=== PATIENT | female | born 1975 | race Hispanic/Latino ===

== ENCOUNTER 2018-01-05 11:22 | Emergency (ER) | payer SELFPAY ==
[2018-01-05 11:54] VITALS: TEMP 97.4; O2SAT 97
--- NOTE | 2018-01-05 12:30 | ED.PDOC ---
History of Present Illness - General Chief Complaint: General Stated Complaint: lt hip pain radiating to lt ankle Time Seen by Provider: 01/05/18 12:28 Source: patient Exam Limitations: no limitations - History of Present Illness Initial Comments: Alexandria Bustamante 42 y/o female stated that she has sharp pains left lower back radiating to back of left thigh/leg for the last 7 days no bowel or bladder dysfunction;no history of trauma,no weight loss,no fever Timing/Duration: constant, other - see hpi Improving Factors: rest Worsening Factors: movement Associated Symptoms: other - see hpi Allergies/Adverse Reactions: Allergies NO KNOWN ALLERGY Allergy (Verified 01/05/18 11:54) Home Medications: Ambulatory Orders Cyclobenzaprine HCl 1 tablet PO DAILY 01/05/18 Gabapentin 300 mg PO BID #30 cap 01/05/18 Levothyroxine Sodium [Synthroid] 225 mcg PO DAILY 01/05/18 Naproxen Sodium [Aleve] 1 tablet PO BID PRN 01/05/18 Tramadol HCl 50 mg PO TID PRN #30 tab 01/05/18 predniSONE 20 mg PO DAILY 10 Days #10 tab 01/05/18 Review of Systems - Review of Systems Constitutional: States: no symptoms reported EENTM: States: no symptoms reported Respiratory: States: no symptoms reported Musculoskeletal: States: see HPI Neurological: States: see HPI All other Systems: Reviewed and Negative, No Change from Baseline Past Medical History (General) - Patient Medical History Hx Seizures: No Hx Stroke: No Hx Dementia: No Hx Asthma: No Hx of COPD: No Hx Cardiac Disorders: No Hx Congestive Heart Failure: No Hx Pacemaker: No Hx Hypertension: No Hx Thyroid Disease: Yes - cancer Hx Diabetes: No Hx Gastroesophageal Reflux: No Hx Renal Disease: No Hx Cancer: Yes Hx of HIV: No Hx MRSA: No Surgical History: other - total thyroidectomy - Vaccination History Hx Tetanus, Diphtheria Vaccination: No Hx Influenza Vaccination: No Immunizations Up to Date: Yes - Social History Hx Tobacco Use: Yes Hx Alcohol Use: Yes - social Hx Substance Use: No Hx Depression: No Feels Threatened In Home Enviroment: No Feels Threatened In a Relationship: No - Female History Patient is a Female of Child Bearing Age (10 -59 yrs old): Yes Patient : No Family Medical History - Family History Mother Family History: Unknown Hx Family Hypertension: Yes - parents Hx Family Diabetes: Yes - parents Physical Exam - Physical Exam General Appearance: Alert, Comfortable, No apparent distress Eye Exam: bilateral normal Ears, Nose, Throat: hearing grossly normal Neck: supple Respiratory: lungs clear Cardiovascular/Chest: normal peripheral pulses, regular rate, rhythm, no murmur Peripheral Pulses: radial,right: 2+, radial,left: 2+ Gastrointestinal/Abdominal: non tender, soft Back Exam: no CVA tenderness, no vertebral tenderness, decreased range of motion - painful Extremity: non-tender, normal inspection, no calf tenderness Neurologic: no motor/sensory deficits, alert, other - straight leg raising positive 35 degrees left leg DTR: 2+: Patellar, left, Patellar, right Skin Exam: normal color, warm/dry Progress - Progress Progress: 01/05/18 12:36 Vital Signs - 8 hr 01/05/18 11:43 Temperature 97.4 F L Pulse Rate [ 74 Right Radial] Respiratory 18 Rate Blood Pressure 106/69 [Right Arm] O2 Sat by Pulse 97 Oximetry - EKG/XRAY/CT XRAY: lumbar-spondylolisis Departure - Departure Clinical Impression: Back pain with left-sided radiculopathy Time of Disposition: 13:18 Disposition: Discharge to Home or Self Care Condition: Good Departure Forms: ED Discharge - Pt. Copy, Patient Portal Self Enrollment Instructions: Lumbar Radiculopathy, DI for Lumbar Radiculopathy Referrals: Judi Gonzalez MD [Primary Care Provider] - 1-2 Weeks Prescriptions: Gabapentin 300 mg PO BID #30 cap predniSONE 20 mg PO DAILY 10 Days #10 tab Tramadol HCl 50 mg PO TID PRN #30 tab PRN Reason: Pain Home Medications: Ambulatory Orders Cyclobenzaprine HCl 1 tablet PO DAILY 01/05/18 Gabapentin 300 mg PO BID #30 cap 01/05/18 Levothyroxine Sodium [Synthroid] 225 mcg PO DAILY 01/05/18 Naproxen Sodium [Aleve] 1 tablet PO BID PRN 01/05/18 Tramadol HCl 50 mg PO TID PRN #30 tab 01/05/18 predniSONE 20 mg PO DAILY 10 Days #10 tab 01/05/18 Additional Instructions: NEED TO FOLLOW UP WITH PRIMARY Md 07 JANUARY 2018
--- NOTE | 2018-01-05 13:15 | RAD ---
EXAM DESCRIPTION: Lumbar Spine 3 Views CLINICAL HISTORY: 42 years Female, pain COMPARISON: None. TECHNIQUE: AP and lateral views FINDINGS: Moderate degenerative changes L5-S1. Lumbar vertebrae and disc spaces are otherwise well-maintained. No fractures. No spondylolisthesis. IMPRESSION: L5-S1 spondylosis. No other significant findings Electronically signed by: Gabriel Zimmerman 01/05/2018 1:14 PM CDT
[2018-01-05 13:33] VITALS: BP 107/70
== END 2018-01-05 13:33 | disposition home or self-care (01) ==
LOC: ER 11:22
DX: M54.5 Low back pain (principal); M25.552 Pain in left hip; M47.817 Spondylosis without myelopathy or radiculopathy, lumbosacral region; Z79.899 Other long term (current) drug therapy; Z87.891 Personal history of nicotine dependence; Z85.850 Personal history of malignant neoplasm of thyroid; Z98.890 Other specified postprocedural states